=== PATIENT | female | born 1950 | race Caucasian/White ===

== ENCOUNTER → 2016-06-18 | Outpatient (CLI) | payer OTHER ==
[~2016-06-18] MED LIST: ALPR0.257 PO; CITA10TA4 PO; ESTR0.5T PO; GABA300C10 PO; MELO-184 PO; OMEP10CA4 PO; REGADENOSON 0.4 MG/5 ML SYRINGE ONE; SIMV5TAB5 PO; TRAZ100T15 PO
== END | disposition home or self-care (01) ==
LOC: CFH 11:37
PROVIDERS: ATTEND Internal Medicine Cardiovascular Disease
DX: R07.9 Chest pain, unspecified (principal); Q21.8 Other congenital malformations of cardiac septa
CPT/HCPCS: 78452; 93017; 93306; A9502; J2785

== ENCOUNTER → 2018-01-23 | Outpatient (CLI) | payer OTHER ==
[~2018-01-23] MED LIST changes: -MELO-184 PO; +MELO15TA24 PO; -REGADENOSON 0.4 MG/5 ML SYRINGE ONE; +TRAZ-137 PO; -TRAZ100T15 PO
== END | disposition home or self-care (01) ==
LOC: CFH 09:22
PROVIDERS: ATTEND Family Medicine
DX: R16.0 Hepatomegaly, not elsewhere classified (principal); I70.0 Atherosclerosis of aorta; Z90.49 Acquired absence of other specified parts of digestive tract
CPT/HCPCS: 76700

== ENCOUNTER 2019-05-24 17:45 | Inpatient (IN) | payer OTHER ==
[~2019-05-24] VITALS: Ht 170.2 cm; Wt 50.0 kg
[~2019-05-24 17:45] MED LIST changes: +ALBU0.63 NEB; +GABA-827 PO; +LEVA15HF4 INH; -OMEP10CA4 PO; +OMEP10CA5 PO; +RANI-467 PO; +SIMV5TAB14 PO; -SIMV5TAB5 PO; -TRAZ-137 PO; +TRAZ-175 PO
--- NOTE | 2019-05-24 17:56 | NUR ---
PT BROUGHT IN BY [facility] FROM HOME FOR CHIEF COMPLAINT OF SOB. EMS FOUND PATIENT IN DISTRESS UNABLE TO COMPLETE FULL SENTANCES, ENROUTE TO ED PT RECIED DUONEB X3, 125 MG SOLUMEDROL. ON ARRIVAL TO ED PATIENT AWAKE AND ALERT, SOB, UNABLE TO COMPLETE FULL SENTANCES. INCREASED WORK OF BREATHING. NICOLE JASSO AT BEDSIDE TO DISCUSS RSI INTUBATION. PPE IN PLACE. 1752 RSI/TIME OUT PREP. 1753 RSI MEDICATIONS ADMINISTERED 1754 7.5 ETT PLACED @ 23 LIP VSS FOR PROCEDURE.
[2019-05-24] MEDS ORDERED: SODIUM CHLORIDE FLUSH 10ML SYR IVF ONE (18:30)
[2019-05-24] MEDS ORDERED: ETOMIDATE 40 MG/20 ML IVPush ONE (18:30)
[2019-05-24] MEDS ORDERED: SODIUM CHLORIDE 0.9% 1,000ML IVBOLUS ONE (18:30)
[2019-05-24] MEDS ORDERED: VECURONIUM 10 MG IVPush ONE (18:30)
[2019-05-24] MEDS: PROPOFOL 100 ML IV PRN ×2 (18:36→19:01)
[2019-05-24 18:48] LABS: RAPID INFLUENZA A Negative (Negative); RAPID INFLUENZA B Negative (Negative)
[2019-05-24 18:54] LABS: BASOPHILS # (AUTO) 0.02 x10^3/uL (0-0.1); BASOPHILS % (AUTO) 0 % (0-1); EOSINOPHILS # (AUTO) 0.06 x10^3/uL (0-0.4); EOSINOPHILS % (AUTO) 1 % (1-7); LYMPHOCYTES # (AUTO) 1.49 x10^3/uL (1-3.4); LYMPHOCYTES % (AUTO) 16 % (22-44); MD NO; MEAN CORPUSCULAR HEMOGLOBIN 31.6 pg (27.0-34.8); MEAN CORPUSCULAR HGB CONC 33.5 g/dL (32.4-35.8); MEAN CORPUSCULAR VOLUME 94.4 fL (80-100); MEAN PLATELET VOLUME 8.5 fL (7.4-10.4); MONOCYTES # (AUTO) 0.43 x10^3/uL (0.2-0.8); MONOCYTES % (AUTO) 5 % (2-9); NEUTROPHILS # (AUTO) 7.19 x10^3/uL (1.8-6.8); NEUTROPHILS % (AUTO) 78 % (42-75); PLATELET COUNT 212 x10^3/uL (130-400); RED BLOOD COUNT 5.02 x10^6/uL (3.82-5.3); RED CELL DISTRIBUTION WIDTH 14.5 % (9.6-15.2)
[2019-05-24 18:56] LABS: ALBUMIN 3.6 g/dL (3.4-5.0); ANION GAP 5 mmol/L (5-15); CALCIUM 8.9 mg/dL (8.5-10.1); CHLORIDE 109 mmol/L (98-107); CREATININE 0.82 mg/dL (0.55-1.02)
--- NOTE | 2019-05-24 19:16 | NUR ---
Pt bedside report from Chelsea hebert. This rn to assume care of pt. Not tolerating vent well, titrating propofol in response. Requesting versed pushes from md for pt.
[2019-05-24] MEDS ORDERED: MIDAZOLAM 1 MG/ML, 2ML IVPush ONE (19:30)
[2019-05-24] MEDS ORDERED: POTASSIUM CHLORIDE 20 MEQ PACKET PO ONE (19:50)
--- NOTE | 2019-05-24 19:51 | NUR ---
mary jo multani for poc.
[2019-05-24] MEDS ORDERED: LIDOCAINE-MPF 1%, 2ML ENDO PRN (20:00)
[2019-05-24] MEDS ORDERED: SODIUM CHLORIDE FLUSH 10ML SYR IVF PRN (20:00)
[2019-05-24] MEDS ORDERED: LACTULOSE 20 GM/30 ML UDC NG PRN (20:00)
[2019-05-24] MEDS ORDERED: SENNA/DOCUSATE TABLET NG PRN (20:00)
[2019-05-24] MEDS ORDERED: SENNA 176 MG/5 ML ORAL SOL NG PRN (20:00)
[2019-05-24] MEDS ORDERED: ACETAMINOPHEN 650 MG/20.3 ML UDC PO/NG PRN (20:00)
[2019-05-24] MEDS ORDERED: PHARMACY MAY ADJ FOR RENAL FX MC SCH (20:00)
[2019-05-24] MEDS ORDERED: BISACODYL 10 MG SUPP PR PRN (20:00)
[2019-05-24] MEDS: methylPREDNISolone SOD SUCC 125 MG/2 ML IVPush SCH (20:00)
[2019-05-24] MEDS ORDERED: FENTANYL PF 100 MCG/2ML IVPush PRN (20:00)
[2019-05-24] MEDS: POTASSIUM CHLORIDE 20 MEQ PACKET PO SCH (20:00)
--- NOTE | 2019-05-24 20:11 | NUR ---
Pt tolerating sedation well. Vss. Awaiting adm bed.
--- NOTE | 2019-05-24 21:09 | NUR ---
Called pharmacy about process of rsi cleaning and returning for covid r/o pt. Rx states this issue has not been addressed, they confered on this ed rn putting it into a bio bag and bringing it down for them to sanitize.
[2019-05-24] MEDS ORDERED: HEPARIN 5,000 UNITS/ML, 1ML ONE (21:18)
[2019-05-24] MEDS ORDERED: FAMOTIDINE 20 MG/2 ML ONE (21:18)
[2019-05-24] MEDS: HEPARIN 5,000 UNITS/ML, 1ML SQ SCH (21:25)
[2019-05-24] MEDS: FAMOTIDINE 20 MG/2 ML IV SCH (21:25)
[2019-05-24] MEDS: SODIUM CHLORIDE 0.9% 1,000 ML IV SCH (21:25)
--- NOTE | 2019-05-24 22:14 | NUR ---
Rx called back and states to keep rsi kit in room for potential second RSI intubation for covid rule out, via andreina at rx.
[2019-05-24] MEDS ORDERED: PROPOFOL 10 MG/ML, 20ML ONE (23:20)
[2019-05-24] MEDS ORDERED: PROPOFOL 100 ML IV ONE (23:20)
[2019-05-25] VITALS: BP 125/70
[2019-05-25] MEDS: methylPREDNISolone SOD SUCC 125 MG/2 ML IVPush SCH ×4 (03:49→23:34)
[2019-05-25] MEDS: HEPARIN 5,000 UNITS/ML, 1ML SQ SCH ×3 (03:49→19:37)
[2019-05-25 04:30] VITALS: BP 115/65
[2019-05-25 05:23] LABS: BASOPHILS # (AUTO) 0.01 x10^3/uL (0-0.1); BASOPHILS % (AUTO) 0 % (0-1); EOSINOPHILS # (AUTO) 0.05 x10^3/uL (0-0.4); EOSINOPHILS % (AUTO) 1 % (1-7); LYMPHOCYTES # (AUTO) 0.79 x10^3/uL (1-3.4); LYMPHOCYTES % (AUTO) 9 % (22-44); MD NO; MEAN CORPUSCULAR HEMOGLOBIN 31.9 pg (27.0-34.8); MEAN CORPUSCULAR HGB CONC 33.8 g/dL (32.4-35.8); MEAN CORPUSCULAR VOLUME 94.5 fL (80-100); MEAN PLATELET VOLUME 8.8 fL (7.4-10.4); MONOCYTES # (AUTO) 0.15 x10^3/uL (0.2-0.8); MONOCYTES % (AUTO) 2 % (2-9); NEUTROPHILS # (AUTO) 7.44 x10^3/uL (1.8-6.8); NEUTROPHILS % (AUTO) 88 % (42-75); PLATELET COUNT 199 x10^3/uL (130-400); RED BLOOD COUNT 4.55 x10^6/uL (3.82-5.3); RED CELL DISTRIBUTION WIDTH 14.6 % (9.6-15.2)
[2019-05-25 05:33] LABS: ANION GAP 8 mmol/L (5-15); CALCIUM 7.7 mg/dL (8.5-10.1); CHLORIDE 111 mmol/L (98-107); CREATININE 0.62 mg/dL (0.55-1.02)
[2019-05-25] MEDS: PROPOFOL 100 ML IV PRN ×3 (05:55→19:16)
[2019-05-25] MEDS: ALBUTEROL/IPRATROPIUM 2.5MG/0.5MG, 3 ML NPPB SCH ×6 (07:00→22:47)
[2019-05-25] MEDS: FAMOTIDINE 20 MG/2 ML IV SCH (07:43)
[2019-05-25] MEDS: POTASSIUM CHLORIDE 20 MEQ PACKET PO SCH ×2 (07:44→16:56)
[2019-05-25] MEDS: SODIUM CHLORIDE 0.9% 1,000 ML IV SCH ×2 (10:32→23:34)
--- NOTE | 2019-05-25 11:43 | NUR ---
TF GOAL if needed: w/ propofol: PROMOTE @ 50ML/HR off propofol: PROMOTE @ 55ML/HR
[2019-05-26] MEDS: PROPOFOL 100 ML IV PRN ×2 (01:44→06:21)
[2019-05-26] MEDS: ALBUTEROL/IPRATROPIUM 2.5MG/0.5MG, 3 ML NPPB SCH ×7 (02:52→20:43)
[2019-05-26 03:59] LABS: ANION GAP 4 mmol/L (5-15); CALCIUM 8.3 mg/dL (8.5-10.1); CHLORIDE 113 mmol/L (98-107)
[2019-05-26 04:00] VITALS: BP 99/48
[2019-05-26 04:00] LABS: BASOPHILS % (AUTO) 0 % (0-1); EOSINOPHILS % (AUTO) 0 % (1-7); LYMPHOCYTES # (AUTO) 0.74 x10^3/uL (1-3.4); LYMPHOCYTES % (AUTO) 6 % (22-44); MD NO; MEAN CORPUSCULAR HEMOGLOBIN 32.1 pg (27.0-34.8); MEAN CORPUSCULAR HGB CONC 33.7 g/dL (32.4-35.8); MEAN CORPUSCULAR VOLUME 95.1 fL (80-100); MEAN PLATELET VOLUME 8.8 fL (7.4-10.4); MONOCYTES # (AUTO) 0.47 x10^3/uL (0.2-0.8); MONOCYTES % (AUTO) 4 % (2-9); NEUTROPHILS # (AUTO) 11.19 x10^3/uL (1.8-6.8); NEUTROPHILS % (AUTO) 90 % (42-75); PLATELET COUNT 206 x10^3/uL (130-400); RED BLOOD COUNT 4.36 x10^6/uL (3.82-5.3); RED CELL DISTRIBUTION WIDTH 14.5 % (9.6-15.2)
[2019-05-26] MEDS: HEPARIN 5,000 UNITS/ML, 1ML SQ SCH ×3 (04:57→20:09)
[2019-05-26] MEDS: POTASSIUM CHLORIDE 20 MEQ PACKET PO SCH ×2 (07:39→16:07)
[2019-05-26] MEDS: FAMOTIDINE 20 MG/2 ML IV SCH (07:39)
[2019-05-26] MEDS: methylPREDNISolone SOD SUCC 125 MG/2 ML IVPush SCH ×2 (07:39→16:07)
[2019-05-26] MEDS: NICOTINE 21 MG/24 HR PATCH.TD24 TD SCH (10:07)
[2019-05-26] MEDS ORDERED: KETOROLAC 30 MG/1 ML IVPush SCH (11:00)
[2019-05-26] MEDS: KETOROLAC 30 MG/1 ML IVPush PRN ×2 (11:03→17:23)
[2019-05-26] MEDS: SODIUM CHLORIDE 0.9% 1,000 ML IV SCH (12:00)
[2019-05-26 16:55] LABS: CULTURE INDICATED? YES; MICROSCOPIC INDICATED
[2019-05-26] MEDS ORDERED: LORazepam 2 MG/ML, 1ML ONE (20:24)
[2019-05-26] MEDS ORDERED: LORazepam 2 MG/ML, 1ML IVPush ONE (20:30)
[2019-05-26] MEDS ORDERED: TEMAZEPAM 15 MG CAPSULE PO PRN (21:00)
[2019-05-27] MEDS: methylPREDNISolone SOD SUCC 125 MG/2 ML IVPush SCH ×2 (01:05→08:37)
[2019-05-27 04:00] VITALS: BP 129/73
[2019-05-27 04:55] LABS: BASOPHILS % (AUTO) 0 % (0-1); EOSINOPHILS % (AUTO) 0 % (1-7); LYMPHOCYTES # (AUTO) 0.51 x10^3/uL (1-3.4); LYMPHOCYTES % (AUTO) 5 % (22-44); MD NO; MEAN CORPUSCULAR HEMOGLOBIN 31.9 pg (27.0-34.8); MEAN CORPUSCULAR HGB CONC 33.3 g/dL (32.4-35.8); MEAN CORPUSCULAR VOLUME 95.6 fL (80-100); MEAN PLATELET VOLUME 8.5 fL (7.4-10.4); MONOCYTES # (AUTO) 0.41 x10^3/uL (0.2-0.8); MONOCYTES % (AUTO) 4 % (2-9); NEUTROPHILS # (AUTO) 9.27 x10^3/uL (1.8-6.8); NEUTROPHILS % (AUTO) 91 % (42-75); PLATELET COUNT 199 x10^3/uL (130-400); RED BLOOD COUNT 4.26 x10^6/uL (3.82-5.3); RED CELL DISTRIBUTION WIDTH 14.9 % (9.6-15.2)
[2019-05-27 05:06] LABS: ANION GAP 4 mmol/L (5-15); CALCIUM 8.6 mg/dL (8.5-10.1); CHLORIDE 110 mmol/L (98-107)
[2019-05-27 05:07] LABS: CREATININE 0.61 mg/dL (0.55-1.02)
[2019-05-27] MEDS: HEPARIN 5,000 UNITS/ML, 1ML SQ SCH ×2 (05:10→12:00)
[2019-05-27] MEDS: ALBUTEROL/IPRATROPIUM 2.5MG/0.5MG, 3 ML NPPB SCH ×2 (07:39→11:00)
[2019-05-27] MEDS ORDERED: GUAIFENESIN 200 MG TABLET PO PRN (08:30)
[2019-05-27] MEDS ORDERED: SODIUM CHLORIDE 0.9% 1,000 ML IV SCH (08:30)
[2019-05-27] MEDS: FAMOTIDINE 20 MG/2 ML IV SCH (08:37)
[2019-05-27] MEDS: NICOTINE 21 MG/24 HR PATCH.TD24 TD SCH (08:37)
[2019-05-27] MEDS: POTASSIUM CHLORIDE 20 MEQ PACKET PO SCH (08:37)
[2019-05-27] MEDS ORDERED: BUDESONIDE 0.5 MG/2 ML INHA INH SCH (09:00)
[2019-05-27] MEDS ORDERED: FUROSEMIDE 40 MG/4 ML IV ONE (10:00)
[2019-05-27] MEDS: KETOROLAC 30 MG/1 ML IVPush PRN (10:58)
[2019-05-27] MEDS ORDERED: morphine SULFATE 10 MG/ML, 1ML ONE (12:05)
[2019-05-27] MEDS ORDERED: LORazepam 2 MG/ML, 1ML ONE (12:06)
[2019-05-27] MEDS ORDERED: MORPHINE SULFATE 4 MG/ML, 1ML IVPush ONE (12:30)
[2019-05-27] MEDS ORDERED: LORazepam 2 MG/ML, 1ML IVPush ONE (12:30)
[2019-05-27] MEDS ORDERED: ONDANSETRON 2MG/ML, 2ML IVPush PRN (13:00)
[2019-05-27] MEDS ORDERED: SCOPOLAMINE 1MG PATCH TD PRN (13:00)
[2019-05-27] MEDS: MORPHINE 30MG/30ML PCA.SYR IV PRN (14:32)
[2019-05-28] MEDS: LORazepam 2 MG/ML, 1ML IVPush PRN ×2 (03:40→23:25)
[2019-05-28] MEDS: MORPHINE 30MG/30ML PCA.SYR IV PRN ×2 (05:05→19:51)
[2019-05-28] MEDS: ATROPINE OPHTH SOLN 1%, 5ML PO PRN ×3 (06:42→21:11)
[2019-05-28] MEDS ORDERED: DIPHENHYDRAMINE 50 MG/ML, 1ML IVPush PRN (12:30)
[2019-05-29] MEDS: MORPHINE 30MG/30ML PCA.SYR IV PRN (10:24)
[2019-05-29] MEDS: LORazepam 2 MG/ML, 1ML IVPush PRN ×2 (11:19→14:11)
== END 2019-05-29 17:30 | disposition expired | DRG 208 ==
LOC: ED 19:40 → EDIP 19:45 → ICU 23:31 → CCU 05-25 19:59 → 4NW 05-27 16:05
PROVIDERS: ADMIT Family Medicine; ATTEND Internal Medicine
PROC: 5A1945Z Respiratory Ventilation, 24-96 Consecutive Hours (ICD-10-PCS; 2019-05-24)
PROC: 0BH17EZ Insertion of Endotracheal Airway into Trachea, Via Natural or Artificial Opening (ICD-10-PCS; 2019-05-24)
PROC: 0T9B70Z Drainage of Bladder with Drainage Device, Via Natural or Artificial Opening (ICD-10-PCS; principal; 2019-05-26)
DX: J96.21 Acute and chronic respiratory failure with hypoxia (principal); G93.41 Metabolic encephalopathy; J44.1 Chronic obstructive pulmonary disease with (acute) exacerbation; R64 Cachexia; Z99.11 Dependence on respirator [ventilator] status; Z68.1 Body mass index [BMI] 19.9 or less, adult; E11.9 Type 2 diabetes mellitus without complications; J96.22 Acute and chronic respiratory failure with hypercapnia; E78.5 Hyperlipidemia, unspecified; E87.6 Hypokalemia; F32.9 Major depressive disorder, single episode, unspecified; J98.4 Other disorders of lung; K21.9 Gastro-esophageal reflux disease without esophagitis; R62.7 Adult failure to thrive; Z51.5 Encounter for palliative care; Z66 Do not resuscitate; Z72.0 Tobacco use; Z90.710 Acquired absence of both cervix and uterus; Z99.81 Dependence on supplemental oxygen
CPT/HCPCS: 31500; 36415; 36600; 87400; 87486; 87581; 87633; 87798; 99291; J3490; 71045; 80048; 81001; 82040; 82803; 83605; 83735; 84478; 85025; 87040; 87070; 87077; 87081; 87086; 87186; 87205; 93005; 94002; 94003; 94640; G0378; J1644; J1885; J2250; J2270; J2704; J1200; J2060; J2930; J7030